=== PATIENT | male | born 1990 | race Caucasian/White ===

== ENCOUNTER 2017-07-05 09:24 | Emergency (ER) | payer SELFPAY ==
[~2017-07-05] VITALS: Ht 175.3 cm; Wt 68.2 kg
[2017-07-05] MEDS ORDERED: SODIUM CHLORIDE 0.9% 1,000 ML IV ONE (10:40)
[2017-07-05] MEDS ORDERED: ONDANSETRON 2MG/ML, 2ML ONE (10:58)
[2017-07-05] MEDS ORDERED: FAMOTIDINE 20 MG/2 ML ONE (10:58)
[2017-07-05] MEDS ORDERED: FAMOTIDINE 20 MG/2 ML IVP ONE (11:00)
[2017-07-05] MEDS ORDERED: SODIUM CHLORIDE FLUSH 10ML SYR IVF ONE (11:00)
[2017-07-05] MEDS ORDERED: SODIUM CHLORIDE 0.9% 1,000ML IVBOLUS ONE ×2 (11:00→12:00)
[2017-07-05] MEDS ORDERED: ONDANSETRON 2MG/ML, 2ML IVPush ONE (11:00)
[2017-07-05 11:41] LABS: BLOOD UREA NITROGEN 18 mg/dL (7-18)
[2017-07-05 11:42] LABS: HEMATOCRIT 55.8 % (39.2-51.8); HEMOGLOBIN 18.8 g/dL (13.7-18.0); WHITE BLOOD COUNT 20.5 x10^3/uL (3.4-10)
[2017-07-05 11:44] LABS: ASPARTATE AMINO TRANSFERASE 13 U/L (15-37)
[2017-07-05] MEDS ORDERED: OMNIPAQUE 350 MG/ML, 100ML BOTTLE ONE (13:04)
[2017-07-05 13:50] VITALS: BP 144/83
== END 2017-07-05 13:55 | disposition home or self-care (01) ==
LOC: ED 10:34
DX: K29.20 Alcoholic gastritis without bleeding (principal); D72.829 Elevated white blood cell count, unspecified
CPT/HCPCS: 36415; 74177; 80053; 81001; 85025; 96361; 96374; 96375; 99285; J2405; J7030; Q9967; S0028

== ENCOUNTER 2019-09-02 20:53 | Emergency (ER) | payer MEDICAID, OTHER ==
[~2019-09-02] VITALS: Ht 182.9 cm; Wt 69.3 kg
--- NOTE | 2019-09-03 00:17 | NUR ---
Pt roomed, placed vitals signs monitors, gurney rails up and locked, placed call light withinreach.
[2019-09-03 00:24] VITALS: BP 133/82
--- NOTE | 2019-09-03 00:24 | NUR ---
Pt refusing to wear gown.
[2019-09-03 00:33] LABS: ALANINE AMINOTRANSFERASE 45 U/L (12-78); ANION GAP 2 mmol/L (5-15); CALCIUM 8.9 mg/dL (8.5-10.1); CHLORIDE 103 mmol/L (98-107); CREATININE 1.01 mg/dL (0.7-1.3)
[2019-09-03 00:35] LABS: BASOPHILS # (AUTO) 0.07 x10^3/uL (0-0.1); BASOPHILS % (AUTO) 1 % (0-1); EOSINOPHILS # (AUTO) 0.38 x10^3/uL (0-0.4); EOSINOPHILS % (AUTO) 4 % (1-7); LYMPHOCYTES # (AUTO) 2.89 x10^3/uL (1-3.4); LYMPHOCYTES % (AUTO) 29 % (22-44); MD NO; MEAN CORPUSCULAR HEMOGLOBIN 28.1 pg (27.5-34.5); MEAN CORPUSCULAR HGB CONC 33.5 g/dL (33.2-36.2); MEAN PLATELET VOLUME 9.1 fL (7.4-10.4); MONOCYTES # (AUTO) 0.65 x10^3/uL (0.2-0.8); MONOCYTES % (AUTO) 7 % (2-9); NEUTROPHILS # (AUTO) 6.04 x10^3/uL (1.8-6.8); NEUTROPHILS % (AUTO) 60 % (42-75); PLATELET COUNT 289 x10^3/uL (130-400); RED BLOOD COUNT 5.31 x10^6/uL (4.38-5.82); RED CELL DISTRIBUTION WIDTH 14.7 % (9.4-14.8)
[2019-09-03 00:36] LABS: ALKALINE PHOSPHATASE 79 U/L (45-117); BILIRUBIN,TOTAL 0.9 mg/dL (0.2-1.0); TOTAL PROTEIN 8.4 g/dL (6.4-8.2)
== END 2019-09-03 01:35 | disposition home or self-care (01) ==
LOC: ED 09-03 01:10
DX: L03.114 Cellulitis of left upper limb (principal); F17.200 Nicotine dependence, unspecified, uncomplicated
CPT/HCPCS: 36415; 80053; 83605; 84145; 85025; 87040; 99285

== ENCOUNTER 2020-10-03 00:57 | Emergency (ER) | payer MEDICAID ==
[~2020-10-03] VITALS: Ht 182.9 cm; Wt 67.6 kg
[2020-10-03] MEDS ORDERED: LIDOCAINE 1%, 10ML INFIL ONE (01:30)
[2020-10-03] MEDS ORDERED: MORPHINE SULFATE 4 MG/ML, 1ML IVPush PRN (01:30)
[2020-10-03] MEDS ORDERED: SODIUM CHLORIDE 0.9% 1,000ML IVBOLUS ONE (01:30)
[2020-10-03] MEDS ORDERED: ONDANSETRON 2MG/ML, 2ML IVPush ONE (01:30)
[2020-10-03] MEDS ORDERED: SODIUM CHLORIDE FLUSH 10ML SYR IVF ONE (01:30)
[2020-10-03 02:00] LABS: BASOPHILS % (AUTO) 1 % (0-1); EOSINOPHILS % (AUTO) 4 % (1-7); LYMPHOCYTES % (AUTO) 22 % (22-44); MEAN CORPUSCULAR HEMOGLOBIN 27.6 pg (27.5-34.5); MEAN CORPUSCULAR HGB CONC 33.8 g/dL (33.2-36.2); MEAN PLATELET VOLUME 8.3 fL (7.4-10.4); MONOCYTES % (AUTO) 5 % (2-9); NEUTROPHILS % (AUTO) 69 % (42-75); PLATELET COUNT 420 x10^3/uL (130-400); RED BLOOD COUNT 4.21 x10^6/uL (4.38-5.82); RED CELL DISTRIBUTION WIDTH 13.3 % (9.4-14.8)
[2020-10-03] MEDS ORDERED: OMNIPAQUE 350 MG/ML, 100ML BOTTLE ONE (02:00)
[2020-10-03 02:01] LABS: ANION GAP 5 mmol/L (5-15); CALCIUM 8.6 mg/dL (8.5-10.1); CHLORIDE 105 mmol/L (98-107); CREATININE 0.97 mg/dL (0.7-1.3)
[2020-10-03 02:02] LABS: MD NO
[2020-10-03] MEDS ORDERED: ONDANSETRON 2MG/ML, 2ML ONE (02:06)
[2020-10-03] MEDS ORDERED: MORPHINE SULFATE 4 MG/ML, 1ML ONE (02:06)
--- NOTE | 2020-10-03 02:16 | NUR ---
piv established, pt medicated per emar for pain, fluids running, i/d set up, labs drawn.
[2020-10-03] MEDS ORDERED: LIDOCAINE-MPF 1%, 5ML ONE (02:19)
--- NOTE | 2020-10-03 02:36 | NUR ---
PT TO CT
[2020-10-03] MEDS ORDERED: PROPOFOL 10 MG/ML, 20ML ONE ×2 (03:17→03:36)
[2020-10-03] MEDS ORDERED: PROPOFOL 10 MG/ML, 20ML IVPush ONE ×2 (03:30→04:30)
[2020-10-03] MEDS ORDERED: CEFAZOLIN PMX 1GM/50ML 50 ML IV ONE (03:30)
--- NOTE | 2020-10-03 03:30 | NUR ---
PATIENT VERBALIZED AND CONSENTED TO I&D WITH CONSCIOUS SEDATION. PATIENT UPDATED ON PLAN OF CARE, AND DISCHARGE EDUCATION. VITAL SIGNS STABLE. PATIENT IS NOW ONE-ON-ONE FOR CONSCIOUS SEDATION. SEE PROCEDURAL SEDATION PACKET FOR FURTHER CHARTING.
--- NOTE | 2020-10-03 04:05 | NUR ---
SEE PROCEDURAL SEDATION CHARTING FOR VITAL SIGNS DURING SEDATION PROCEDURE.
[2020-10-03] MEDS ORDERED: CEFAZOLIN PMX 1GM/50ML 50 ML ONE (04:14)
--- NOTE | 2020-10-03 04:15 | NUR ---
PATIENT IS BACK TO BASELINE. VSS, NNAD. PATIENT TOLERATED PROCEDURE WELL. PATIENT DENIES ANY COMPLICATIONS AT THIS TIME. PATIENT VERBALIZED UNDERSTANDING OF SELF CARE AND FOLLOW UP CARE AT HOME. PATIENT GIVEN WATER, SUCCESSFUL PO CHALLENGE, AND WARM BLANKETS PER PATIENT REQUEST. PRIMARY RN NOTIFIED OF PROCEDURE AND REPORT HANDED OFF TO JEFFREY VILLALBA.
[2020-10-03 05:07] VITALS: BP 133/75
== END 2020-10-03 05:31 | disposition home or self-care (01) ==
LOC: ED 01:27
DX: L03.116 Cellulitis of left lower limb (principal); L02.416 Cutaneous abscess of left lower limb; M79.662 Pain in left lower leg; M79.89 Other specified soft tissue disorders; F17.210 Nicotine dependence, cigarettes, uncomplicated
CPT/HCPCS: 10060; 36415; 73701; 80048; 85025; 96361; 96365; 96375; 99285; 99406; J0690; J2270; J2405; J7030; Q9967